=== PATIENT | female | born 1945 | race Caucasian/White ===

== ENCOUNTER 2017-07-03 12:06 | Day surgery (SDC) | payer MEDICARE, BC ==
[~2017-07-03] VITALS: Ht 154.9 cm; Wt 64.1 kg
[~2017-07-03 12:06] MED LIST: BUPR100T13 PO; CYAN100T12 PO; LANTUS SQ; LISI10TA4 PO; MULT-1085 PO; OSC500T PO; PROP10TA10 PO; SERT100T PO; SERT100T10 PO; SOFO1TAB PO
[2017-07-03] MEDS ORDERED: LIDOcaine Viscous 15ml cup ONE (12:39)
[2017-07-03] MEDS ORDERED: fentaNYL/PF 50MCG/1 ML 2ML syringe ONE (12:40)
[2017-07-03] MEDS ORDERED: MIDAZolam 5mg/ml 2ml vial ONE (12:40)
[2017-07-03] MEDS ORDERED: CLOP75TA15 PO (12:45)
[2017-07-03] MEDS ORDERED: [UNRECOGNIZED DRUG - REMARK] PO (12:45)
[2017-07-03] MEDS ORDERED: ASPI81TA52 PO (12:45)
[2017-07-03] MEDS ORDERED: SPIR25TA3 PO (12:45)
[2017-07-03] MEDS ORDERED: FURO-150 PO (12:45)
[2017-07-03] MEDS ORDERED: POTA10TA19 PO (12:45)
[2017-07-03] MEDS ORDERED: LACT10SO6 PO (12:45)
[2017-07-03 13:04] VITALS: BP 115/42
[2017-07-03 13:40] VITALS: BP 112/51
[2017-07-03 13:50] VITALS: BP 103/47
[2017-07-03 14:00] VITALS: BP 106/55
[2017-07-03 14:10] VITALS: BP 105/53
== END 2017-07-03 14:30 | disposition home or self-care (01) ==
LOC: GI LAB 12:06
PROVIDERS: ATTEND Internal Medicine Gastroenterology
DX: K74.60 Unspecified cirrhosis of liver (principal); Z98.84 Bariatric surgery status
CPT/HCPCS: 43235; J2250; J3010; J7030; A4620; G0500

== ENCOUNTER 2017-07-18 17:39 | Emergency (ER) | payer MEDICARE, BC ==
[~2017-07-18] VITALS: Ht 154.9 cm; Wt 68.8 kg
[~2017-07-18 17:39] MED LIST changes: +ASPI81TA52 PO; +CLOP75TA15 PO; +FURO-150 PO; +LACT10SO6 PO; +POTA10TA19 PO; -SERT100T10 PO; -SOFO1TAB PO; +SPIR25TA3 PO; +[UNRECOGNIZED DRUG - REMARK] PO
[2017-07-18 17:46] VITALS: BP 110/56
[2017-07-18 18:41] LABS: INR 1.3 INR; PARTIAL THROMBOPLASTIN TIME 30 SECONDS (22-32); PROTHROMBIN TIME 13.1 SECONDS (9.0-12.0)
== END 2017-07-18 19:38 | disposition home or self-care (01) ==
LOC: ER 17:40
DX: S00.411A Abrasion of right ear, initial encounter (principal); R51 Headache; I10 Essential (primary) hypertension; E11.9 Type 2 diabetes mellitus without complications; Z90.710 Acquired absence of both cervix and uterus; Z85.9 Personal history of malignant neoplasm, unspecified; Z79.82 Long term (current) use of aspirin; Z79.4 Long term (current) use of insulin; Z79.899 Other long term (current) drug therapy; W18.39XA Other fall on same level, initial encounter; Y93.89 Activity, other specified; Y92.89 Other specified places as the place of occurrence of the external cause; Y99.8 Other external cause status
CPT/HCPCS: 36415; 70450; 85610; 85730; 99285

== ENCOUNTER 2017-07-18 22:36 | Emergency (ER) | payer MEDICARE, BC ==
[~2017-07-18] VITALS: Ht 154.9 cm; Wt 74.0 kg
[2017-07-18 23:38] LABS: BASOPHILS % (AUTO) 0.4 % (0-1); EOSINOPHILS % (AUTO) 0 % (0-6); HEMATOCRIT 27.4 % (35.0-45.0); HEMOGLOBIN 8.8 g/dl (12.0-16.0); LYMPHOCYTES # (AUTO) 0.6 X10'3 (1.1-4.8); LYMPHOCYTES % (AUTO) 8.6 % (21-51); MEAN CORPUSCULAR HEMOGLOBIN 25.2 PG (27.0-31.0); MEAN CORPUSCULAR VOLUME 78.6 FL (78-98); MEAN PLATELET VOLUME 9.8 FL (7.4-10.4); MONOCYTES # (AUTO) 0.7 X10'3 (0-0.9); MONOCYTES % (AUTO) 10.1 % (2-12); NEUTROPHILS # (AUTO) 5.6 X10'3 (1.8-7.7); NEUTROPHILS % (AUTO) 80.9 % (42-75); PLATELET COUNT 136 X10'3 (140-440); RED BLOOD COUNT 3.49 X10'6 (4.20-5.60); RED CELL DISTRIBUTION WIDTH 25.8 % (11.5-14.5)
[2017-07-18 23:52] LABS: ALANINE AMINOTRANSFERASE 93 U/L (12-78); ALBUMIN 2.7 G/DL (3.4-5.0); ALBUMIN/GLOBULIN RATIO 0.7 (1.1-1.5); ALKALINE PHOSPHATASE 290 IU/L (46-116); ANION GAP 9 (8-16); ASPARTATE AMINO TRANSFERASE 125 U/L (10-37); BILIRUBIN,TOTAL 1.2 MG/DL (0.1-1.0); BLOOD UREA NITROGEN 25 MG/DL (7-18); CHLORIDE 106 MMOL/L (99-107); GLUCOSE 96 MG/DL (70-104); MAGNESIUM 1.9 MG/DL (1.5-2.4); POTASSIUM 3.9 MMOL/L (3.5-5.1); SODIUM 141 MMOL/L (135-145); TOTAL CARBON DIOXIDE 26.2 MMOL/L (24-32); TOTAL PROTEIN 6.6 G/DL (6.4-8.2); eGFR 55 ML/MIN
[2017-07-19 00:15] LABS: HYPOCHROMASIA 2+; PLATELET ESTIMATE DECREASED
[2017-07-19 00:18] LABS: ANISOCYTOSIS 2+; SCHISTOCYTES 1+
[2017-07-19 00:19] LABS: TARGET CELLS FEW
[2017-07-19 00:34] LABS: CLARITY,URINE CLEAR (Clear); COLOR,URINE YELLOW (Yellow); GLUCOSE, URINE NEGATIVE (Neg); KETONES,URINE NEGATIVE (Neg); LEUKOCYTE ESTERASE ,URINE NEGATIVE (Neg); NITRITES, URINE NEGATIVE (Neg); OCCULT BLOOD,URINE NEGATIVE (Neg); PROTEIN,URINE NEGATIVE (Neg); UROBILINOGEN,URINE 0.2 E.U/dL (0.2-1.0)
[2017-07-19 00:35] LABS: UA COLLECTION TYPE CLN CATCH MIDSTREAM
[2017-07-19 01:36] VITALS: BP 104/30
== END 2017-07-19 01:52 | disposition home or self-care (01) ==
LOC: ER 22:37
DX: E11.649 Type 2 diabetes mellitus with hypoglycemia without coma (principal); N28.9 Disorder of kidney and ureter, unspecified; R74.0 Nonspecific elevation of levels of transaminase and lactic acid dehydrogenase [LDH]; I10 Essential (primary) hypertension; Z90.710 Acquired absence of both cervix and uterus; Z98.890 Other specified postprocedural states; Z79.4 Long term (current) use of insulin; Z79.82 Long term (current) use of aspirin; Z79.899 Other long term (current) drug therapy
CPT/HCPCS: 36415; 71045; 80053; 81003; 82948; 83605; 83735; 84145; 84484; 85025; 87040; 93005; 99285

== ENCOUNTER 2017-08-24 11:52 | Emergency (ER) | payer MEDICARE, BC ==
[~2017-08-24] VITALS: Ht 180.3 cm; Wt 71.0 kg
[2017-08-24] MEDS ORDERED: PANT-47 PO (12:47)
[2017-08-24] MEDS ORDERED: RIFA550T PO (12:47)
[2017-08-24] MEDS ORDERED: CHOL200016 PO (12:47)
[2017-08-24] MEDS ORDERED: LIDOCAINE VISCOUS PO (12:48)
[2017-08-24] MEDS ORDERED: [UNRECOGNIZED DRUG - CODE] (12:48)
[2017-08-24 13:06] LABS: BASOPHILS # (AUTO) 0.1 X10'3 (0-0.2); BASOPHILS % (AUTO) 0.7 % (0-1); EOSINOPHILS # (AUTO) 0.1 X10'3 (0-0.9); HEMATOCRIT 28.1 % (35.0-45.0); HEMOGLOBIN 9.3 g/dl (12.0-16.0); LYMPHOCYTES # (AUTO) 0.5 X10'3 (1.1-4.8); LYMPHOCYTES % (AUTO) 3.9 % (21-51); MEAN CORPUSCULAR HEMOGLOBIN 27.5 PG (27.0-31.0); MEAN CORPUSCULAR HGB CONC 33.1 % (33.0-36.5); MEAN CORPUSCULAR VOLUME 83.1 FL (78-98); MEAN PLATELET VOLUME 8.7 FL (7.4-10.4); MONOCYTES # (AUTO) 0.6 X10'3 (0-0.9); MONOCYTES % (AUTO) 4.7 % (2-12); NEUTROPHILS # (AUTO) 11.5 X10'3 (1.8-7.7); NEUTROPHILS % (AUTO) 89.7 % (42-75); PLATELET COUNT 169 X10'3 (140-440); RED BLOOD COUNT 3.38 X10'6 (4.20-5.60); RED CELL DISTRIBUTION WIDTH 27.4 % (11.5-14.5); WHITE BLOOD COUNT 12.9 X10'3 (4.5-11.0)
[2017-08-24 13:14] LABS: INR 1.8 INR; PROTHROMBIN TIME 17.9 SECONDS (9.0-12.0)
[2017-08-24 13:34] LABS: ANISOCYTOSIS 3+; MICROCYTOSIS 1+; PLATELET ESTIMATE NORMAL
[2017-08-24 13:35] LABS: ALANINE AMINOTRANSFERASE 223 U/L (12-78); ALBUMIN 2.1 G/DL (3.4-5.0); ALBUMIN/GLOBULIN RATIO 0.5 (1.1-1.5); ALKALINE PHOSPHATASE 365 IU/L (46-116); ANION GAP 10 (8-16); ASPARTATE AMINO TRANSFERASE 469 U/L (10-37); BILIRUBIN,TOTAL 4.4 MG/DL (0.1-1.0); BLOOD UREA NITROGEN 55 MG/DL (7-18); BUN/CREATININE RATIO 32.7 (6.6-38.0); CHLORIDE 104 MMOL/L (99-107); CREATININE 1.68 MG/DL (0.40-0.90); FERRITIN 142 NG/ML (8-252); GLUCOSE 87 MG/DL (70-104); LIPASE 149 U/L (73-393); POLYCHROMASIA FEW; POTASSIUM 5.1 MMOL/L (3.5-5.1); SCHISTOCYTES FEW; SODIUM 137 MMOL/L (135-145); TARGET CELLS 1+; TOTAL CARBON DIOXIDE 23.5 MMOL/L (24-32); TOTAL PROTEIN 6.2 G/DL (6.4-8.2); eGFR 30 ML/MIN
[2017-08-24 14:03] LABS: % IRON SATURATION 16 % (11-46); IRON 37 UG/DL (49-151); TOTAL IRON BINDING CAPACITY 237 UG/DL (259-388)
[2017-08-24 14:15] VITALS: BP 118/65
== END 2017-08-24 14:29 | disposition home or self-care (01) ==
LOC: ER 11:52
DX: R18.8 Other ascites (principal); I10 Essential (primary) hypertension; E11.9 Type 2 diabetes mellitus without complications; F17.210 Nicotine dependence, cigarettes, uncomplicated; Z90.710 Acquired absence of both cervix and uterus; Z79.82 Long term (current) use of aspirin; Z79.4 Long term (current) use of insulin; Z79.899 Other long term (current) drug therapy
CPT/HCPCS: 36415; 71045; 80053; 82103; 82306; 82728; 83540; 83550; 83690; 83880; 84443; 85025; 85610; 99285

== ENCOUNTER 2017-08-26 00:05 | Emergency (ER) | payer MEDICARE, BC ==
[~2017-08-26] VITALS: Ht 154.9 cm; Wt 68.6 kg
[~2017-08-26 00:05] MED LIST changes: +CHOL200016 PO; +LIDOCAINE VISCOUS PO; -LISI10TA4 PO; -OSC500T PO; +PANT-47 PO; -POTA10TA19 PO; +RIFA550T PO; +[UNRECOGNIZED DRUG - CODE]; -[UNRECOGNIZED DRUG - REMARK] PO
[2017-08-26 01:11] VITALS: BP 138/64
== END 2017-08-26 01:48 | disposition home or self-care (01) ==
LOC: ER 00:06
DX: E10.649 Type 1 diabetes mellitus with hypoglycemia without coma (principal); I10 Essential (primary) hypertension; C22.9 Malignant neoplasm of liver, not specified as primary or secondary; Z90.710 Acquired absence of both cervix and uterus; Z79.82 Long term (current) use of aspirin; Z79.899 Other long term (current) drug therapy
CPT/HCPCS: 82948; 99284

== ENCOUNTER 2017-08-27 09:49 | Inpatient (IN) | payer MEDICARE, BC ==
[~2017-08-27] VITALS: Ht 152.4 cm; Wt 70.0 kg
[2017-08-27] MEDS ORDERED: ondansetron/PF 4mg/2ml inj IV ONE (10:00)
[2017-08-27 10:15] LABS: BASOPHILS % (AUTO) 0.1 % (0-1); EOSINOPHILS # (AUTO) 0.1 X10'3 (0-0.9); EOSINOPHILS % (AUTO) 0.8 % (0-6); HEMATOCRIT 26.1 % (35.0-45.0); HEMOGLOBIN 8.6 g/dl (12.0-16.0); LYMPHOCYTES # (AUTO) 0.7 X10'3 (1.1-4.8); LYMPHOCYTES % (AUTO) 4.2 % (21-51); MEAN CORPUSCULAR HEMOGLOBIN 27.7 PG (27.0-31.0); MEAN CORPUSCULAR HGB CONC 33.1 % (33.0-36.5); MEAN CORPUSCULAR VOLUME 83.7 FL (78-98); MEAN PLATELET VOLUME 8.1 FL (7.4-10.4); MONOCYTES # (AUTO) 0.7 X10'3 (0-0.9); MONOCYTES % (AUTO) 4.6 % (2-12); NEUTROPHILS # (AUTO) 14.5 X10'3 (1.8-7.7); NEUTROPHILS % (AUTO) 90.3 % (42-75); PLATELET COUNT 170 X10'3 (140-440); RED BLOOD COUNT 3.12 X10'6 (4.20-5.60); RED CELL DISTRIBUTION WIDTH 27.8 % (11.5-14.5); WHITE BLOOD COUNT 16.1 X10'3 (4.5-11.0)
[2017-08-27 10:25] LABS: INR 2.2 INR; PARTIAL THROMBOPLASTIN TIME 38 SECONDS (22-32); PROTHROMBIN TIME 21.9 SECONDS (9.0-12.0)
[2017-08-27 10:31] LABS: ALANINE AMINOTRANSFERASE 305 U/L (12-78); ALKALINE PHOSPHATASE 325 IU/L (46-116); ANION GAP 13 (8-16); ASPARTATE AMINO TRANSFERASE 800 U/L (10-37); BILIRUBIN,TOTAL 6.7 MG/DL (0.1-1.0); BLOOD UREA NITROGEN 65 MG/DL (7-18); BUN/CREATININE RATIO 29.5 (6.6-38.0); CALCIUM 7.7 MG/DL (8.5-10.1); CHLORIDE 104 MMOL/L (99-107); GLUCOSE 101 MG/DL (70-104); LIPASE 153 U/L (73-393); MAGNESIUM 2.5 MG/DL (1.5-2.4); SODIUM 137 MMOL/L (135-145); TOTAL CARBON DIOXIDE 20.2 MMOL/L (24-32); eGFR 22 ML/MIN
[2017-08-27 10:32] LABS: ALBUMIN/GLOBULIN RATIO 0.6 (1.1-1.5); POTASSIUM 5.4 MMOL/L (3.5-5.1); TOTAL PROTEIN 5.5 G/DL (6.4-8.2)
[2017-08-27] MEDS ORDERED: LIDOcaine 1% 30ml preserv. free vial SQ STA (11:11)
[2017-08-27] MEDS: vitamin D (cholecalciferol) 1,000 unit tablet PO SCH (11:30)
[2017-08-27 11:42] LABS: CLARITY,URINE CLEAR (Clear); COLOR,URINE YELLOW (Yellow); GLUCOSE, URINE NEGATIVE (Neg); KETONES,URINE TRACE mg/dl (Neg); LEUKOCYTE ESTERASE ,URINE NEGATIVE (Neg); NITRITES, URINE NEGATIVE (Neg); OCCULT BLOOD,URINE NEGATIVE (Neg); PH,URINE 5.5 (4.8-8.0); PROTEIN,URINE NEGATIVE (Neg)
[2017-08-27 11:46] LABS: UA COLLECTION TYPE CLN CATCH MIDSTREAM
[2017-08-27 11:51] LABS: ANISOCYTOSIS 3+; PLATELET ESTIMATE NORMAL
[2017-08-27 11:52] LABS: BURR CELLS 1+; POIKILOCYTOSIS 1+; POLYCHROMASIA FEW; TARGET CELLS 1+
[2017-08-27 11:54] LABS: SCHISTOCYTES FEW
[2017-08-27] MEDS ORDERED: ondansetron/PF 4mg/2ml inj IV PRN (13:25)
[2017-08-27] MEDS ORDERED: LORazepam 0.5 MG tablet PO PRN (13:25)
[2017-08-27] MEDS ORDERED: HYDROcodone/acetaminophen 5mg/325mg tablet PO PRN (13:25)
[2017-08-27] MEDS ORDERED: morphine 10mg/ml inj. IV PRN (13:25)
[2017-08-27] MEDS ORDERED: ondansetron 4mg rapidly disintigrating tab PO ONE (13:25)
[2017-08-27] MEDS: lactulose 20gm/30ml cup PO SCH ×2 (13:28→21:49)
[2017-08-27] MEDS: propranolol 10mg tablet PO SCH ×2 (13:28→21:49)
[2017-08-27 15:15] LABS: AMYLASE,BODY FLUID 11 U/L; LDH,BODY FLUID 45 U/L; LIPASE,BODY FLUID 46 U/L
[2017-08-27 15:16] LABS: ALBUMIN,BODY FLUID < 0.6 G/DL
[2017-08-27 15:28] LABS: TOTAL PROTEIN,BODY FLUID < 2.0 G/DL
[2017-08-27 16:18] LABS: LYMPHOCYTES,BODY FLUID 15 %; MONOCYTES,BODY FLUID 27 %; NEUTROPHILS,BODY FLUID 58 %
[2017-08-27 16:20] LABS: BF MESOTHELIAL CELLS OCCASIONAL; BF RBC COUNT 107 /CU MM; BF WBC COUNT 23 /CU MM (0-1000); BFAPPEAR HAZY; BFCOLOR YELLOW; BFVOLUME 20 ML
[2017-08-27] MEDS: CefTRIAXone 2gm/D5W 50ml 50 ML IV SCH (17:52)
[2017-08-27] MEDS: rifaximin 550mg tablet PO SCH (20:14)
[2017-08-27 22:15] VITALS: BP 106/67
[2017-08-27 23:18] LABS: HEMOGLOBIN A1C 5.3 % (4.5-6.2)
[2017-08-28] VITALS: BP 112/56
[2017-08-28 07:00] VITALS: BP 108/32
[2017-08-28] MEDS ORDERED: pantoprazole 40 MG vial IV SCH (08:00)
[2017-08-28] MEDS: spironolactone 25 MG tablet PO SCH (08:00)
[2017-08-28] MEDS: CefTRIAXone 2gm/D5W 50ml 50 ML IV SCH (08:34)
[2017-08-28] MEDS: lactulose 20gm/30ml cup PO SCH ×3 (08:37→22:09)
[2017-08-28] MEDS: vitamin D (cholecalciferol) 1,000 unit tablet PO SCH (08:38)
[2017-08-28] MEDS: multivitamins, therapeutics tablet PO SCH (08:41)
[2017-08-28] MEDS: pantoprazole 40mg Tablet.DR PO SCH (08:42)
[2017-08-28] MEDS: clopidogrel 75mg tablet PO SCH (08:43)
[2017-08-28] MEDS: sertraline 50mg tablet PO SCH (08:43)
[2017-08-28] MEDS: aspirin 81mg tablet.DR PO SCH (08:43)
[2017-08-28] MEDS: rifaximin 550mg tablet PO SCH ×2 (08:44→22:10)
[2017-08-28] MEDS: propranolol 10mg tablet PO SCH ×3 (08:53→22:10)
[2017-08-28] MEDS: furosemide 20MG tablet PO SCH (08:53)
[2017-08-28 11:00] VITALS: BP 108/32
[2017-08-28 12:40] LABS: ALBUMIN 1.9 G/DL (3.4-5.0); ANION GAP 11 (8-16); BLOOD UREA NITROGEN 66 MG/DL (7-18); BUN/CREATININE RATIO 31.9 (6.6-38.0); CALCIUM 7.5 MG/DL (8.5-10.1); CHLORIDE 104 MMOL/L (99-107); CREATININE 2.07 MG/DL (0.40-0.90); GLUCOSE 157 MG/DL (70-104); POTASSIUM 4.8 MMOL/L (3.5-5.1); SODIUM 136 MMOL/L (135-145); TOTAL CARBON DIOXIDE 21.2 MMOL/L (24-32); eGFR 24 ML/MIN
[2017-08-28 12:59] VITALS: BP 112/42
[2017-08-28] MEDS ORDERED: LISI10TA4 PO (14:16)
[2017-08-28 17:41] LABS: ALANINE AMINOTRANSFERASE 296 U/L (12-78); ALBUMIN 1.8 G/DL (3.4-5.0); ALKALINE PHOSPHATASE 342 IU/L (46-116); ANION GAP 11 (8-16); ASPARTATE AMINO TRANSFERASE 603 U/L (10-37); BILIRUBIN,TOTAL 6.5 MG/DL (0.1-1.0); BLOOD UREA NITROGEN 68 MG/DL (7-18); BUN/CREATININE RATIO 32.5 (6.6-38.0); CALCIUM 7.5 MG/DL (8.5-10.1); CHLORIDE 105 MMOL/L (99-107); CREATININE 2.09 MG/DL (0.40-0.90); GLUCOSE 161 MG/DL (70-104); SODIUM 135 MMOL/L (135-145); eGFR 23 ML/MIN
[2017-08-28 17:43] LABS: BILIRUBIN,DIRECT 4.9 MG/DL (0-0.3)
[2017-08-28 17:44] LABS: ALBUMIN/GLOBULIN RATIO 0.5 (1.1-1.5); TOTAL PROTEIN 5.6 G/DL (6.4-8.2)
[2017-08-28] MEDS: Protein Smoothie (high protein) 240ml (8oz) cup PO SCH (18:00)
[2017-08-28 20:00] VITALS: BP_SYST 112; BP_SYST 117; BP_DIAS 37; BP_DIAS 41
[2017-08-28] MEDS: lactobacillus rhamnosus 10,000 MMU CELLS/CAPSULE PO SCH (22:09)
[2017-08-28] MEDS: LIDOcaine Viscous 15ml cup MM PRN (22:11)
[2017-08-29] VITALS: BP 113/38
[2017-08-29] MEDS: lactulose 20gm/30ml cup PO SCH ×4 (02:51→22:01)
[2017-08-29 08:00] VITALS: BP_SYST 112; BP_SYST 119; BP_DIAS 49; BP_DIAS 53
[2017-08-29] MEDS: Protein Smoothie (high protein) 240ml (8oz) cup PO SCH ×3 (08:00→18:20)
[2017-08-29] MEDS: spironolactone 25 MG tablet PO SCH (08:15)
[2017-08-29] MEDS: pantoprazole 40mg Tablet.DR PO SCH (08:15)
[2017-08-29] MEDS: propranolol 10mg tablet PO SCH ×3 (08:15→22:00)
[2017-08-29] MEDS: furosemide 20MG tablet PO SCH (08:15)
[2017-08-29] MEDS: multivitamins, therapeutics tablet PO SCH (08:15)
[2017-08-29] MEDS: lactobacillus rhamnosus 10,000 MMU CELLS/CAPSULE PO SCH ×2 (08:15→22:00)
[2017-08-29] MEDS: sertraline 50mg tablet PO SCH (08:15)
[2017-08-29] MEDS: clopidogrel 75mg tablet PO SCH (08:15)
[2017-08-29] MEDS: aspirin 81mg tablet.DR PO SCH (08:15)
[2017-08-29] MEDS: vitamin D (cholecalciferol) 1,000 unit tablet PO SCH (08:15)
[2017-08-29] MEDS: nystatin 500,000 unit/5ML UD oral suspension PO SCH ×3 (08:25→22:00)
[2017-08-29] MEDS: LIDOcaine Viscous 15ml cup MM PRN (08:25)
[2017-08-29] MEDS: rifaximin 550mg tablet PO SCH ×2 (08:26→22:00)
[2017-08-29 09:06] LABS: BASOPHILS % (AUTO) 0 % (0-1); EOSINOPHILS % (AUTO) 0 % (0-6); HEMATOCRIT 26.3 % (35.0-45.0); HEMOGLOBIN 8.9 g/dl (12.0-16.0); LYMPHOCYTES # (AUTO) 1.8 X10'3 (1.1-4.8); MEAN CORPUSCULAR HEMOGLOBIN 28.3 PG (27.0-31.0); MEAN CORPUSCULAR HGB CONC 33.8 % (33.0-36.5); MEAN CORPUSCULAR VOLUME 83.8 FL (78-98); MEAN PLATELET VOLUME 8.3 FL (7.4-10.4); MONOCYTES # (AUTO) 0.5 X10'3 (0-0.9); MONOCYTES % (AUTO) 4.1 % (2-12); NEUTROPHILS # (AUTO) 10.5 X10'3 (1.8-7.7); NEUTROPHILS % (AUTO) 81.9 % (42-75); PLATELET COUNT 130 X10'3 (140-440); RED BLOOD COUNT 3.14 X10'6 (4.20-5.60); RED CELL DISTRIBUTION WIDTH 27.5 % (11.5-14.5); WHITE BLOOD COUNT 12.9 X10'3 (4.5-11.0)
[2017-08-29 09:16] LABS: ALANINE AMINOTRANSFERASE 286 U/L (12-78); ALBUMIN 1.8 G/DL (3.4-5.0); ALBUMIN/GLOBULIN RATIO 0.5 (1.1-1.5); ALKALINE PHOSPHATASE 337 IU/L (46-116); ANION GAP 10 (8-16); ASPARTATE AMINO TRANSFERASE 500 U/L (10-37); BILIRUBIN,TOTAL 6.1 MG/DL (0.1-1.0); BLOOD UREA NITROGEN 63 MG/DL (7-18); BUN/CREATININE RATIO 29.9 (6.6-38.0); CALCIUM 7.7 MG/DL (8.5-10.1); CHLORIDE 107 MMOL/L (99-107); CREATININE 2.11 MG/DL (0.40-0.90); GLUCOSE 156 MG/DL (70-104); POTASSIUM 4.6 MMOL/L (3.5-5.1); SODIUM 138 MMOL/L (135-145); TOTAL PROTEIN 5.4 G/DL (6.4-8.2); eGFR 23 ML/MIN
[2017-08-29 10:09] LABS: ANISOCYTOSIS 3+; PLATELET ESTIMATE DECREASED; POIKILOCYTOSIS 1+; POLYCHROMASIA FEW
[2017-08-29 10:10] LABS: BURR CELLS 1+; SCHISTOCYTES FEW; TARGET CELLS 1+
[2017-08-29 16:01] VITALS: BP 115/44
[2017-08-29 20:00] VITALS: BP_SYST 110; BP_SYST 120; BP_DIAS 45; BP_DIAS 55
[2017-08-30] VITALS: BP 125/60
[2017-08-30] MEDS: lactulose 20gm/30ml cup PO SCH ×4 (03:27→21:41)
[2017-08-30 07:27] VITALS: BP 115/45
[2017-08-30] MEDS: multivitamins, therapeutics tablet PO SCH (08:19)
[2017-08-30] MEDS: furosemide 20MG tablet PO SCH (08:19)
[2017-08-30] MEDS: spironolactone 25 MG tablet PO SCH (08:19)
[2017-08-30] MEDS: rifaximin 550mg tablet PO SCH ×2 (08:19→21:41)
[2017-08-30] MEDS: propranolol 10mg tablet PO SCH ×3 (08:19→21:41)
[2017-08-30] MEDS: aspirin 81mg tablet.DR PO SCH (08:20)
[2017-08-30] MEDS: Protein Smoothie (high protein) 240ml (8oz) cup PO SCH ×3 (08:20→19:45)
[2017-08-30] MEDS: pantoprazole 40mg Tablet.DR PO SCH (08:20)
[2017-08-30] MEDS: sertraline 50mg tablet PO SCH (08:20)
[2017-08-30] MEDS: lactobacillus rhamnosus 10,000 MMU CELLS/CAPSULE PO SCH ×2 (08:20→21:41)
[2017-08-30] MEDS: nystatin 500,000 unit/5ML UD oral suspension PO SCH ×3 (08:20→21:41)
[2017-08-30] MEDS: vitamin D (cholecalciferol) 1,000 unit tablet PO SCH (08:22)
[2017-08-30] MEDS: clopidogrel 75mg tablet PO SCH (08:24)
[2017-08-30 11:04] VITALS: BP 104/38
[2017-08-30 20:00] VITALS: BP 115/64
[2017-08-31] VITALS: BP 110/49
[2017-08-31] MEDS: lactulose 20gm/30ml cup PO SCH ×4 (03:19→19:40)
[2017-08-31 07:00] VITALS: BP 105/45
[2017-08-31] MEDS: propranolol 10mg tablet PO SCH ×3 (08:00→21:00)
[2017-08-31] MEDS: lactobacillus rhamnosus 10,000 MMU CELLS/CAPSULE PO SCH ×2 (08:13→19:40)
[2017-08-31] MEDS: spironolactone 25 MG tablet PO SCH (08:13)
[2017-08-31] MEDS: aspirin 81mg tablet.DR PO SCH (08:14)
[2017-08-31] MEDS: furosemide 20MG tablet PO SCH (08:15)
[2017-08-31] MEDS: Protein Smoothie (high protein) 240ml (8oz) cup PO SCH ×3 (08:15→18:07)
[2017-08-31] MEDS: pantoprazole 40mg Tablet.DR PO SCH (08:15)
[2017-08-31] MEDS: clopidogrel 75mg tablet PO SCH (08:15)
[2017-08-31] MEDS: rifaximin 550mg tablet PO SCH ×2 (08:16→19:41)
[2017-08-31] MEDS: multivitamins, therapeutics tablet PO SCH (08:16)
[2017-08-31] MEDS: vitamin D (cholecalciferol) 1,000 unit tablet PO SCH (08:17)
[2017-08-31] MEDS: sertraline 50mg tablet PO SCH (08:17)
[2017-08-31] MEDS: nystatin 500,000 unit/5ML UD oral suspension PO SCH ×3 (08:47→21:41)
[2017-08-31 11:49] VITALS: BP 123/47
[2017-08-31 13:35] VITALS: BP 125/49
[2017-08-31 19:00] VITALS: BP 115/50
[2017-08-31] MEDS ORDERED: glucagon, human recombinant 1mg kit SUBCUT PRN (22:00)
[2017-08-31] MEDS ORDERED: dextrose ORAL solution 15 GM/59 ML bottle PO PRN ×2 (22:00)
[2017-08-31] MEDS ORDERED: dextrose 50%-water 50ml dispensing syringe IV PRN ×2 (22:00)
[2017-08-31] MEDS ORDERED: MESSAGE TO PHARMACY PO ONE (22:00)
[2017-08-31] MEDS ORDERED: insulin Lispro (HumaLOG) vial - multi-dose SQ SCH (22:00)
[2017-09-01] VITALS: BP 113/56
[2017-09-01] MEDS: lactulose 20gm/30ml cup PO SCH ×3 (02:05→13:02)
[2017-09-01 07:30] VITALS: BP 115/39
[2017-09-01] MEDS: nystatin 500,000 unit/5ML UD oral suspension PO SCH ×2 (07:52→12:34)
[2017-09-01] MEDS: furosemide 20MG tablet PO SCH (07:52)
[2017-09-01] MEDS: Protein Smoothie (high protein) 240ml (8oz) cup PO SCH ×2 (07:52→13:02)
[2017-09-01] MEDS: rifaximin 550mg tablet PO SCH (07:52)
[2017-09-01] MEDS: lactobacillus rhamnosus 10,000 MMU CELLS/CAPSULE PO SCH (07:52)
[2017-09-01] MEDS: clopidogrel 75mg tablet PO SCH (07:52)
[2017-09-01] MEDS: pantoprazole 40mg Tablet.DR PO SCH (07:52)
[2017-09-01] MEDS: spironolactone 25 MG tablet PO SCH (07:53)
[2017-09-01] MEDS: vitamin D (cholecalciferol) 1,000 unit tablet PO SCH (07:53)
[2017-09-01] MEDS: sertraline 50mg tablet PO SCH (07:53)
[2017-09-01] MEDS: multivitamins, therapeutics tablet PO SCH (07:53)
[2017-09-01] MEDS: aspirin 81mg tablet.DR PO SCH (07:53)
[2017-09-01] MEDS: propranolol 10mg tablet PO SCH ×2 (07:53→12:35)
[2017-09-01 12:19] VITALS: BP 108/41
== END 2017-09-01 14:00 | DRG 435 ==
LOC: ER 09:50 → ED HOLD 11:29 → SUR 3N 22:10
PROVIDERS: ADMIT Emergency Medicine; ATTEND Family Medicine
PROC: 0W9G3ZZ Drainage of Peritoneal Cavity, Percutaneous Approach (ICD-10-PCS; principal; 2017-08-27)
DX: C22.0 Liver cell carcinoma (principal); K76.7 Hepatorenal syndrome; E43 Unspecified severe protein-calorie malnutrition; G93.41 Metabolic encephalopathy; D61.818 Other pancytopenia; E72.20 Disorder of urea cycle metabolism, unspecified; K76.6 Portal hypertension; E11.649 Type 2 diabetes mellitus with hypoglycemia without coma; R18.8 Other ascites; R64 Cachexia; B19.20 Unspecified viral hepatitis C without hepatic coma; F32.9 Major depressive disorder, single episode, unspecified; I10 Essential (primary) hypertension; S10.93XA Contusion of unspecified part of neck, initial encounter; I25.10 Atherosclerotic heart disease of native coronary artery without angina pectoris; K74.60 Unspecified cirrhosis of liver; F17.210 Nicotine dependence, cigarettes, uncomplicated; W18.39XA Other fall on same level, initial encounter; R29.6 Repeated falls; Z90.710 Acquired absence of both cervix and uterus; Z79.82 Long term (current) use of aspirin; Z79.4 Long term (current) use of insulin; Z79.899 Other long term (current) drug therapy; Z85.05 Personal history of malignant neoplasm of liver; Y93.89 Activity, other specified; Y92.098 Other place in other non-institutional residence as the place of occurrence of the external cause; Y99.8 Other external cause status; Z68.30 Body mass index [BMI] 30.0-30.9, adult
CPT/HCPCS: 36415; 49083; 70450; 70490; 70551; 71045; 71046; 74176; 80048; 80053; 81003; 82042; 82140; 82150; 82248; 82948; 83036; 83605; 83615; 83690; 83735; 84145; 84157; 85025; 85610; 85730; 87040; 87070; 89051; 93005; 97116; 97161; 97530; 99285; J0696; J2405; J3490; J7030